=== PATIENT | female | born 1970 | race American Indian/Alaskan Native ===

== ENCOUNTER 2016-07-15 03:19 | Emergency (ER) | payer MEDICAID ==
[2016-07-15] MEDS ORDERED: HCTZ PO ONE (04:23)
[2016-07-15] MEDS ORDERED: APRESOLINE PO ONE (04:23)
--- NOTE | 2016-07-15 05:11 | Emergency Department Report ---
<DEE MERIDA P - Last Filed: 07/15/16 06:08> ED General Adult HPI - General Chief complaint: High BP Stated complaint: INCREASED BLOOD PRESSURE Time Seen by Provider: 07/15/16 04:12 Source: EMS Mode of arrival: Stretcher Limitations: No Limitations - History of Present Illness Initial comments: This is a very pleasant 46-year-old female who reports a long-standing history of hypertension. She is at [facility] since 2 days due to depression. She states that she is on hydrochlorothiazide as well as amlodipine and when necessary clonidine over at [facility]. Apparently her blood pressure is been quite elevated despite this treatment. She states her blood pressure usually is elevated. She is not sure how elevated it usually is. She reports amlodipine being a new medication as of chest 2 days ago. It was just a new prescription and her doctor gave her a few days before. Before that she was on lisinopril. She was asked to DC lisinopril by her doctor. She again is specifically brought over here due to the high blood pressure. Patient otherwise has no symptoms. She denies any chest pain or shortness of breath. She does report occasional pedal edema. This is not a problem currently according to the patient. She is feeling well in general. Reports normal urine output. - Related Data Home Medications Medication Instructions Recorded Confirmed Last Taken Chlorthalidone [Thalitone] 25 mg PO QDAY 07/04/14 07/04/14 07/04/14 Previous Rx's Medication Instructions Recorded Last Taken Type Lisinopril/Hydrochlorothiazide 1 tab PO QDAY #90 tablet 08/15/13 07/04/14 Rx [Zestoretic 10-12.5 mg] HYDROcodone/APAP 10-325 [[place] 1 each PO Q8HR PRN #20 tablet 07/04/14 Unknown Rx 10/325] Nitrofurantoin [place]/M-Cryst 100 mg PO Q12HR #14 capsule 07/04/14 Unknown Rx [Macrobid] ALBUTEROL Inhaler [ProAir HFA 2 puff IH QID PRN #1 inhalation 02/04/15 Unknown Rx Inhaler] Azithromycin [Zithromax TAB] 250 mg PO QDAY #5 tablet 02/04/15 Unknown Rx HYDROcodone/APAP 5-325 [[place] 1 each PO Q6HR PRN #20 tablet 02/04/15 Unknown Rx 5/325] Allergies Allergy/AdvReac Type Severity Reaction Status Date / Time No Known Allergies Allergy Verified 07/03/14 18:52 ED Review of Systems ROS: Stated complaint: INCREASED BLOOD PRESSURE Other details as noted in HPI Comment: All other systems reviewed and negative Constitutional: denies: chills, fever Eyes: denies: eye pain, eye discharge, vision change ENT: denies: ear pain, throat pain Respiratory: denies: cough, shortness of breath, wheezing Cardiovascular: denies: chest pain, palpitations Endocrine: no symptoms reported Gastrointestinal: denies: abdominal pain, nausea, diarrhea Genitourinary: denies: urgency, dysuria, discharge Musculoskeletal: denies: back pain, joint swelling, arthralgia Skin: denies: rash, lesions Neurological: denies: headache, weakness, paresthesias Psychiatric: depression. denies: anxiety Hematological/Lymphatic: denies: easy bleeding, easy bruising ED Past Medical Hx - Past Medical History Hx Hypertension: Yes Hx Arthritis: Yes Additional medical history: obese. ANEMIA - Social History Smoking Status: Unknown if ever smoked Substance Use Type: None - Medications Home Medications: Home Medications Medication Instructions Recorded Confirmed Last Taken Type Lisinopril/Hydrochlorothiazide 1 tab PO QDAY #90 tablet 08/15/13 07/04/14 Rx [Zestoretic 10-12.5 mg] Chlorthalidone [Thalitone] 25 mg PO QDAY 07/04/14 07/04/14 07/04/14 History HYDROcodone/APAP 10-325 [[place] 1 each PO Q8HR PRN #20 tablet 07/04/14 Unknown Rx 10/325] Nitrofurantoin [place]/M-Cryst 100 mg PO Q12HR #14 capsule 07/04/14 Unknown Rx [Macrobid] ALBUTEROL Inhaler [ProAir HFA 2 puff IH QID PRN #1 inhalation 02/04/15 Unknown Rx Inhaler] Azithromycin [Zithromax TAB] 250 mg PO QDAY #5 tablet 02/04/15 Unknown Rx HYDROcodone/APAP 5-325 [[place] 1 each PO Q6HR PRN #20 tablet 02/04/15 Unknown Rx 5/325] ED Physical Exam - General Limitations: No Limitations General appearance: alert, in no apparent distress - Head Head exam: Present: atraumatic, normocephalic - Eye Eye exam: Present: normal appearance, EOMI. Absent: scleral icterus - ENT ENT exam: Present: normal exam, normal orophraynx, mucous membranes moist - Neck Neck exam: Present: normal inspection - Respiratory Respiratory exam: Present: normal lung sounds bilaterally. Absent: respiratory distress, wheezes, rales - Cardiovascular Cardiovascular Exam: Present: regular rate, normal rhythm. Absent: systolic murmur, diastolic murmur, rubs, gallop - GI/Abdominal GI/Abdominal exam: Present: soft, normal bowel sounds. Absent: tenderness, guarding - Extremities Exam Extremities exam: Present: normal inspection. Absent: tenderness, pedal edema, calf tenderness - Back Exam Back exam: Present: normal inspection. Absent: tenderness, CVA tenderness (R), CVA tenderness (L) - Neurological Exam Neurological exam: Present: alert, oriented X3 - Psychiatric Psychiatric exam: Present: normal affect, normal mood - Skin Skin exam: Present: warm, dry, intact, normal color. Absent: rash ED Course Vital Signs 07/15/16 07/15/16 07/15/16 03:41 03:47 03:50 Temperature 98.1 F Pulse Rate 56 L Respiratory Rate Blood Pressure 194/110 194/110 Blood Pressure [Left] O2 Sat by Pulse 100 100 99 Oximetry 07/15/16 07/15/16 07/15/16 03:56 04:00 04:10 Temperature Pulse Rate Respiratory 18 Rate Blood Pressure 194/110 194/110 Blood Pressure [Left] O2 Sat by Pulse 100 99 Oximetry 07/15/16 07/15/16 07/15/16 04:26 04:30 04:31 Temperature Pulse Rate 53 L Respiratory 18 Rate Blood Pressure 185/103 185/103 Blood Pressure 185/103 [Left] O2 Sat by Pulse 100 99 100 Oximetry 07/15/16 07/15/16 07/15/16 04:40 04:50 05:00 Temperature Pulse Rate Respiratory Rate Blood Pressure 195/112 195/112 174/94 Blood Pressure [Left] O2 Sat by Pulse 97 98 96 Oximetry 07/15/16 07/15/16 07/15/16 05:10 05:20 05:30 Temperature Pulse Rate Respiratory Rate Blood Pressure 174/94 191/105 191/105 Blood Pressure [Left] O2 Sat by Pulse 98 97 98 Oximetry 07/15/16 07/15/16 07/15/16 05:40 05:50 06:00 Temperature Pulse Rate Respiratory Rate Blood Pressure 187/109 187/109 183/99 Blood Pressure [Left] O2 Sat by Pulse 96 97 97 Oximetry 07/15/16 06:10 Temperature Pulse Rate Respiratory Rate Blood Pressure 183/99 Blood Pressure [Left] O2 Sat by Pulse 97 Oximetry - Reevaluation(s) Reevaluation #1: 07/15/16 05:13 Patient is comfortable well-appearing and appropriate here. She is very calm. We will trial her on an increase of her hydrochlorothiazide. She is currently on 25 mg daily. With her report of occasional pedal edema I think it would benefit her to be on 50 mg. This is been given. In addition I will trial her on hydralazine tonight. She did receive clonidine 0.1 mg 2 at her facility without significant improvement. I'll see if she responds better to hydralazine. In general I feel that the appropriate regimen for her is hydrochlorothiazide 50 mg daily as well as amlodipine 10 mg daily. I do not feel like a calcium channel are beta hima can be used given her low heart rate is baseline. I did consider long-acting nitroglycerin but am hesitant to do this at this time. Critical care attestation.: If time is entered above; I have spent that time in minutes in the direct care of this critically ill patient, excluding procedure time. ED Disposition Clinical Impression: Elevated blood pressure Disposition: DC/TX PSY HOSP/PSY UNIT Is pt being admited?: No Does the pt Need Aspirin: No Condition: Good Instructions: Hypertension (ED) Additional Instructions: This patient has been known to have elevated blood pressure since 2014. Hypertension has been a chronic medical issues since 2014. There is no medical indication at this time for emergent or urgent decrease of blood pressure. The patient should follow-up with her primary care doctor within the next week for further evaluation, management and treatment of this chronically elevated blood pressure. It is important to follow up with the primary care doctor within the week for further evaluation and management of elevated blood pressure. Long-term complications of hypertension/elevated blood pressure includes stroke, heart attack, disability, , paralysis, permanent loss of quality of life. Please return to the ER right away with fevers, chills, chest pain, shortness of breath, intractable nausea or vomiting, inability to tolerate liquid feeds. Please note that the [employer] has a specific clinical policy regarding a medic hypertension. For the convenience of the medical staff at the psychiatric facility, I am enclosing a hyperlink to look it up, and have also copied and pasted the salient aspects of that clinical policy. [email or web address] Do asymptomatic patients with elevated blood pressures benefit from rapid lowering of their blood pressure? Level A recommendations. None specified. Level B recommendations. (1) Initiating treatment for asymptomatic hypertension in the ED is not necessary when patients have follow-up; (2) Rapidly lowering blood pressure in asymptomatic patients in the ED is unnecessary and may be harmful in some patients; (3) When ED treatment for asymptomatic hypertension is initiated, blood pressure management should attempt to gradually lower blood pressure and should not be expected to be normalized during the initial ED visit. At the patient's primary care doctor is having difficulty managing the hypertension, the patient should follow-up with the kidney/hypertension specialist within the next [address] Westbrook is a local kidney specialist Referrals: MIRNA GOMEZ MD [Primary Care Provider] - 3-5 Days NATALIE YOST MD [Staff Physician] - 3-5 Days TAYLOR WESTBROOK MD [Staff Physician] - 3-5 Days <LORENA NOLEN - Last Filed: 07/15/16 07:48> ED Course - Reevaluation(s) Reevaluation #2: 07/15/16 07:43 Patient is seen and evaluated by myself. I have gone through her old medical records. Patient has a history of long-standing hypertension since 2014. She does not have any chest pain, shortness of breath, nausea, vomiting, diarrhea, loss of vision. She has no clinical symptoms at this time to suggest end organ dysfunction. As per the [employer] clinical policy on asymptomatic hypertension: Do asymptomatic patients with elevated blood pressures benefit from rapid lowering of their blood pressure? Level A recommendations. None specified. Level B recommendations. (1) Initiating treatment for asymptomatic hypertension in the ED is not necessary when patients have follow-up; (2) Rapidly lowering blood pressure in asymptomatic patients in the ED is unnecessary and may be harmful in some patients; (3) When ED treatment for asymptomatic hypertension is initiated, blood pressure management should attempt to gradually lower blood pressure and should not be expected to be normalized during the initial ED visit. Given that this appears to be a chronic issue, and that the patient is asymptomatic, and not currently on a 1013, she is instructed to follow-up with her outpatient primary care doctor for further evaluation and management of her chronic medical issue. At this point in time, it does not appear that her chronically elevated blood pressure would be a medical contraindication to psychiatric consultation/evaluation. ED Disposition Is pt being admited?: No Does the pt Need Aspirin: No
[2016-07-15] MEDS ORDERED: NORVASC PO ONE (05:55)
[2016-07-15 09:17] VITALS: BP 154/91
== END 2016-07-15 08:45 ==
LOC: ED 03:19
DX: I10 Essential (primary) hypertension (principal); M19.90 Unspecified osteoarthritis, unspecified site; D64.9 Anemia, unspecified
CPT/HCPCS: 99283